=== PATIENT | male | born 1980 | race Two or more races ===

== ENCOUNTER 2018-09-09 17:09 | Emergency (ER) | payer OTHER ==
[2018-09-09 17:22] VITALS: BP 135/86; PULSE 95; TEMP 98.5; BMI 33.4
--- NOTE | 2018-09-09 18:44 | PDOC ---
History of Present Illness - General Chief Complaint: Chest Pain Stated Complaint: BACK PAIN Time Seen by Provider: 09/09/18 18:23 Past History - Past Medical History Allergies/Adverse Reactions: Allergies Allergy/AdvReac Type Severity Reaction Status Date / Time No Known Drug Allergies Allergy Verified 09/09/18 17:20 Home Medications: Ambulatory Orders Ibuprofen 800 mg PO TID #30 tablet 09/09/18 Oxycodone HCl/Acetaminophen [Percocet 5-325 mg Tablet] 1 tab PO Q6H #12 tablet MDD 4 09/09/18 Anemia: No Asthma: No Cancer: No Cardiac Disorders: No CVA: No COPD: No CHF: No DVT: No Dementia: No Diabetes: No GI Disorders: No Disorders: No HTN: No Hypercholesterolemia: No Liver Disease: No Seizures: No Thyroid Disease: No Lung CA: No - Surgical History Abdominal Surgery: Yes (BILATERAL INGUINAL HERNIA REPAIR X 3) Appendectomy: No Cardiac Surgery: No Cholecystectomy: No Lung Surgery: No Neurologic Surgery: No Orthopedic Surgery: No - Suicide/Smoking/Psychosocial Hx Smoking Status: Yes Smoking History: Current every day smoker Have you smoked in the past 12 months: Yes Number of Cigarettes Smoked Daily: 20 Information on smoking cessation initiated: No 'Breaking Loose' booklet given: 09/19/17 Hx Alcohol Use: No Drug/Substance Use Hx: No Substance Use Type: None Hx Substance Use Treatment: No *Physical Exam - Vital Signs Last Vital Signs Temp Pulse Resp BP Pulse Ox 98.5 F 95 H 16 135/86 96 09/09/18 17:20 09/09/18 17:20 09/09/18 17:20 09/09/18 17:20 09/09/18 17:20 ED Treatment Course - LABORATORY CBC & Chemistry Diagram: 09/09/18 20:14 09/09/18 20:14 *DC/Admit/Observation/Transfer Diagnosis at time of Disposition: Left against medical advice Left shoulder pain Qualifiers: Chronicity: acute Qualified Code(s): M25.512 - Pain in left shoulder - Discharge Dispostion Disposition: HOME - Referrals Referrals: Rubio Zhong MD [Primary Care Provider] - 24 hours - Patient Instructions Printed Discharge Instructions: DI for Atypical Chest Pain, DI for Shoulder Pain Additional Instructions: You were evaluated for your shoulder pain and chest pain today Take a percocet every 6 hours as needed for pain Follow up with your primary care doctor this week Return to the ED For worsening chest pain, shortness of breath, lightheadedness , or if you have any changes in your symptoms - Post Discharge Activity Forms/Work/School Notes: Back to Work
[2018-09-09] MEDS ORDERED: LIDOCAINE 5% TOPICAL PATCH TP ONE (18:57)
[2018-09-09] MEDS ORDERED: LIDOCAINE 5% TOPICAL PATCH ONE (19:57)
[2018-09-09] MEDS ORDERED: KETOROLAC TROMETHAMINE 60 MG/2 ML VIAL IM ONE (19:58)
[2018-09-09 20:20] LABS: BASO % 0.6 % (0-2.0); EOS % 1.9 % (0-4.5); HEMATOCRIT 39.3 % (35.4-49); LYMPH % 31.6 % (8-40); MCH 29.3 pg (25.7-33.7); MEAN CELL VOLUME 88.8 fl (80-96); MEAN PLT VOLUME 8.4 fl (7.5-11.1); MONO % 7.7 % (3.8-10.2); NEUT % 58.2 % (42.8-82.8); PLATELET COUNT 253 K/MM3 (134-434); RBC 4.42 M/mm3 (4.00-5.60); WHITE BLOOD COUNT 11.3 K/mm3 (4.0-10.0)
[2018-09-09] MEDS ORDERED: KETOROLAC TROMETHAMINE 60 MG/2 ML VIAL ONE (20:21)
[2018-09-09] MEDS ORDERED: LIDOCAINE PATCH REMOVAL MC SCH (22:00)
--- NOTE | 2018-09-10 18:02 | EKG ---
Test Reason : Blood Pressure : / mmHG Vent. Rate : 079 BPM Atrial Rate : 079 BPM P-R Int : 152 ms QRS Dur : 098 ms QT Int : 370 ms P-R-T Axes : 051 022 030 degrees QTc Int : 424 ms NORMAL SINUS RHYTHM CANNOT RULE OUT ANTERIOR INFARCT , AGE UNDETERMINED ABNORMAL ECG WHEN COMPARED WITH ECG OF 10-FEB-2018 16:14, NO SIGNIFICANT CHANGE WAS FOUND Confirmed by NESTOR CORONA MD ([id number]) on 09/10/2018 6:01:52 PM Referred By: Confirmed By:NESTOR CORONA MD
== END 2018-09-09 22:32 | disposition left against medical advice (07) ==
LOC: JER 17:09 → SUPCPDRO 17:09 → JER 22:01
PROC: 3E0233Z Introduction of Anti-inflammatory into Muscle, Percutaneous Approach (ICD-10-PCS; principal; 2018-09-09)
DX: M25.512 Pain in left shoulder (principal); R07.9 Chest pain, unspecified
CPT/HCPCS: 36415; 71046-TC-FY; 85025; 93005; 93010; 96372; 99282-25

== ENCOUNTER 2019-04-16 18:19 | Emergency (ER) | payer OTHER ==
[2019-04-16 18:39] VITALS: BP 110/81; PULSE 86; TEMP 98.1; BMI 32.5
--- NOTE | 2019-04-16 18:40 | PDOC ---
Rapid Medical Evaluation Time Seen by Provider: 04/16/19 18:35 Medical Evaluation: Allergies Allergy/AdvReac Type Severity Reaction Status Date / Time No Known Drug Allergies Allergy Verified 09/09/18 17:20 04/16/19 18:37 Pt presents for a broken tooth with associated pain Exam: Broken L upper incisior Orders: nothing Pt to proceed to the ER for further evaluation Discharge Disposition - Diagnosis Pain, dental - Referrals - Patient Instructions - Post Discharge Activity
--- NOTE | 2019-04-16 19:03 | PDOC ---
History of Present Illness - General Chief Complaint: Toothache Stated Complaint: TOOTH PAIN Time Seen by Provider: 04/16/19 18:35 History Source: Patient Exam Limitations: Clinical Condition - History of Present Illness Initial Comments: 04/16/19 19:15 Patient with no significant past medical history presented with complaint of a 2 weeks history of pain to left upper tooth due to chipped tooth which has been improving with Tylenol but worsens again after medication wears off. Patient reports he has not been able to see dentist due to uninsured. Patient came in today because the Tylenol has not been helping minimal. Denies any other symptoms Is this a multiple visit Asthma Patient?: No Timing/Duration: other (2 weeks) Past History - Past Medical History Allergies/Adverse Reactions: Allergies Allergy/AdvReac Type Severity Reaction Status Date / Time No Known Drug Allergies Allergy Verified 04/16/19 18:40 Home Medications: Ambulatory Orders Cyclobenzaprine HCl [Flexeril -] 10 mg PO HS #10 tablet 09/09/18 Oxycodone HCl/Acetaminophen [Percocet 5-325 mg Tablet] 1 tab PO Q6H #12 tablet MDD 4 09/09/18 Ibuprofen 800 mg PO Q8H PRN #20 tablet 04/16/19 Anemia: No Asthma: No Cancer: No Cardiac Disorders: No CVA: No COPD: No CHF: No DVT: No Dementia: No Diabetes: No GI Disorders: No Disorders: No HTN: No Hypercholesterolemia: No Liver Disease: No Seizures: No Thyroid Disease: No Lung CA: No - Surgical History Abdominal Surgery: Yes (BILATERAL INGUINAL HERNIA REPAIR X 3) Appendectomy: No Cardiac Surgery: No Cholecystectomy: No Lung Surgery: No Neurologic Surgery: No Orthopedic Surgery: No - Psycho Social/Smoking Cessation Hx Smoking Status: Yes Smoking History: Current every day smoker Have you smoked in the past 12 months: Yes Number of Cigarettes Smoked Daily: 15 Information on smoking cessation initiated: No 'Breaking Loose' booklet given: 09/19/17 Hx Alcohol Use: No Drug/Substance Use Hx: No Substance Use Type: None Hx Substance Use Treatment: No Review of Systems - Review of Systems Able to Perform ROS?: Yes Is the patient limited Micronesian proficient: No Constitutional: No: Chills, Fever, Malaise HEENTM: Yes: Symptoms Reported, See HPI, Dental Problems. No: Eye Pain, Blurred Vision, Tearing, Recent change in vision, Double Vision, Cataracts, Ear Pain, Ocular Prothesis, Ear Discharge, Nose Pain, Nose Congestion, Tinnitus, Nose Bleeding, Hearing Loss, Throat Pain, Throat Swelling, Mouth Pain, Difficulty Swallowing, Mouth Swelling, Other Respiratory: No: Symptoms reported, See HPI, Cough, Orthopnea, Shortness of Breath, SOB with Exertion, SOB at Rest, Stridor, Wheezing, Productive cough, Hemoptysis, Other Cardiac (ROS): No: Symptoms Reported, See HPI, Chest Pain, Edema, Irregular Heart Rate, Lightheadedness, Palpitations, Syncope, Chest Tightness, Other ABD/GI: No: Nausea, Vomiting All Other Systems: Reviewed and Negative *Physical Exam - Vital Signs Last Vital Signs Temp Pulse Resp BP Pulse Ox 98.1 F 86 16 110/81 99 04/16/19 18:35 04/16/19 18:35 04/16/19 18:35 04/16/19 18:35 04/16/19 18:35 - Physical Exam General Appearance: Yes: Nourished, Appropriately Dressed, Mild Distress HEENT: positive: Normal ENT Inspection, Other (chipped tooth off left upper 2nd premolar with tooth decay) Neck: positive: Supple Respiratory/Chest: positive: Lungs Clear, Normal Breath Sounds. negative: Respiratory Distress, Accessory Muscle Use Cardiovascular: positive: Regular Rhythm, Regular Rate Musculoskeletal: positive: Normal Inspection Extremity: positive: Normal Inspection Integumentary: positive: Normal Color Neurologic: positive: Fully Oriented, Alert, Normal Mood/Affect, Normal Response Medical Decision Making - Medical Decision Making 04/16/19 19:17 Patient with no significant past medical history presented with complaint of a 2 weeks history of pain to left upper tooth due to chipped tooth which has been improving with Tylenol but worsens again after medication wears off. Patient reports he has not been able to see dentist due to uninsured. Patient came in today because the Tylenol has not been helping minimal. Denies any other symptoms Exam significant for evaluation of tooth of left upper second premolar with mild tooth decay. Motrin 800 mg p.o. ordered for pain. Topical lidocaine ordered to help with pain. Referral given to patient to follow-up with [facility] where patient has seen on sliding scale for the uninsured. Patient stable for discharge Discharge - Discharge Information Problems reviewed: Yes Clinical Impression/Diagnosis: Pain, dental, Tooth decay Condition: Stable Disposition: HOME - Admission No - Additional Discharge Information Prescriptions: Ibuprofen 800 mg PO Q8H PRN #20 tablet PRN Reason: tooth pain - Follow up/Referral Referrals: [facility], Dental [Other] - Patient Discharge Instructions Patient Printed Discharge Instructions: DI for Dental Pain Additional Instructions: Take prescribed medication as prescribed for dental pain. Follow-up with your dentist as soon as possible as discussed - Post Discharge Activity
[2019-04-16] MEDS ORDERED: IBUPROFEN 400 MG TABLET (FP) PO ONE ×2 (19:07→19:25)
[2019-04-16] MEDS ORDERED: LIDOCAINE HCL 2% JELLY (30 ML/TUBE) TP ONE (19:07)
[2019-04-16] MEDS ORDERED: LIDOCAINE 2.5%/PRILOCAINE 2.5% (5 Gram/TUBE) TP ONE (19:24)
== END 2019-04-16 19:33 | disposition home or self-care (01) ==
LOC: JERFT 18:19
DX: K02.9 Dental caries, unspecified (principal)
CPT/HCPCS: 99281-25

== ENCOUNTER 2019-05-14 18:02 | Emergency (ER) | payer OTHER ==
[2019-05-14 18:19] VITALS: BP 125/81; PULSE 95; TEMP 98.3; BMI 30.4
[2019-05-14] MEDS ORDERED: IBUPROFEN 600 MG TABLET (FP) PO ONE (18:19)
--- NOTE | 2019-05-14 18:20 | PDOC ---
Rapid Medical Evaluation Time Seen by Provider: 05/14/19 18:16 Medical Evaluation: Allergies Allergy/AdvReac Type Severity Reaction Status Date / Time No Known Drug Allergies Allergy Verified 04/16/19 18:40 05/14/19 18:16 Pt presents for evaluation of R knee pain and L shoulder pain after falling today. Denies hitting his head or LOC Exam: TTP of the R knee with associated swelling. Unable to fully flex the knee Orders: X-rays, motrin Pt to proceed to the ER for further evaluation Discharge Disposition - Diagnosis Knee pain - Referrals - Patient Instructions - Post Discharge Activity
[2019-05-14] MEDS ORDERED: KETOROLAC TROMETHAMINE 30 MG/1 ML VIAL IM ONE (21:54)
--- NOTE | 2019-05-14 21:54 | PDOC ---
History of Present Illness - General Chief Complaint: Injury Stated Complaint: INJURY Time Seen by Provider: 05/14/19 18:16 History Source: Patient - History of Present Illness Initial Comments: 05/14/19 22:13 38-year-old male complaining of trip and fall landed on the left shoulder and neck right knee. Patient complains of pain to the right knee and left shoulder pain. Patient is able to leg raise, extend right knee. full rom to left shoulder Denies past medical history Past History - Past Medical History Allergies/Adverse Reactions: Allergies Allergy/AdvReac Type Severity Reaction Status Date / Time No Known Drug Allergies Allergy Verified 04/16/19 18:40 Home Medications: Ambulatory Orders Cyclobenzaprine HCl [Flexeril -] 10 mg PO HS #10 tablet 09/09/18 Oxycodone HCl/Acetaminophen [Percocet 5-325 mg Tablet] 1 tab PO Q6H #12 tablet MDD 4 09/09/18 Ibuprofen 800 mg PO Q8H PRN #20 tablet 04/16/19 Ibuprofen 600 mg PO QID PRN #20 tablet 05/14/19 Oxycodone HCl/Acetaminophen [Percocet 5-325 mg Tablet] 1 - 2 tab PO Q6H PRN #5 tab MDD 4 05/14/19 Anemia: No Asthma: No Cancer: No Cardiac Disorders: No CVA: No COPD: No CHF: No DVT: No Dementia: No Diabetes: No GI Disorders: No Disorders: No HTN: No Hypercholesterolemia: No Liver Disease: No Seizures: No Thyroid Disease: No Lung CA: No Other medical history: congenital right knee deformity - Surgical History Abdominal Surgery: Yes (BILATERAL INGUINAL HERNIA REPAIR X 3) Appendectomy: No Cardiac Surgery: No Cholecystectomy: No Lung Surgery: No Neurologic Surgery: No Orthopedic Surgery: No - Immunization History Immunization Up to Date: No - Psycho Social/Smoking Cessation Hx Smoking Status: Yes Smoking History: Current some day smoker Have you smoked in the past 12 months: No Number of Cigarettes Smoked Daily: 15 Information on smoking cessation initiated: No 'Breaking Loose' booklet given: 09/19/17 Hx Alcohol Use: No Drug/Substance Use Hx: No Substance Use Type: None Hx Substance Use Treatment: No Review of Systems - Review of Systems Able to Perform ROS?: Yes Is the patient limited Arabic proficient: No Constitutional: No: Symptoms Reported, See HPI, Chills, Diaphoresis, Fever, Loss of Appetite, Malaise, Night Sweats, Weakness, Weight Stable, Unintentional Wgt. Loss, Unexplained wgt Loss, Other Musculoskeletal: Yes: Other (knee pain) *Physical Exam - Vital Signs Last Vital Signs Temp Pulse Resp BP Pulse Ox 98.3 F 95 H 20 125/81 99 05/14/19 18:15 05/14/19 18:15 05/14/19 18:15 05/14/19 18:15 05/14/19 18:15 - Physical Exam General Appearance: Yes: Appropriately Dressed Extremity: positive: Normal Capillary Refill, Other (full rom to left [place]. able to touch oppositre shoulder. right knee slight swelling. able to leg raise , able to hyper extent) Integumentary: positive: Normal Color, Dry, Warm Neurologic: positive: Fully Oriented ED Progress Note - Progress Note Progress Note: A: right knee injury; left shoulder strain P: xray knee immbolizer RICE ortho follow up Discharge - Discharge Information Problems reviewed: Yes Clinical Impression/Diagnosis: Knee pain Qualifiers: Chronicity: acute Laterality: right Qualified Code(s): M25.561 - Pain in right knee Pain in left shoulder Qualifiers: Chronicity: acute Qualified Code(s): M25.512 - Pain in left shoulder Disposition: HOME - Additional Discharge Information Prescriptions: Ibuprofen 600 mg PO QID PRN #20 tablet PRN Reason: Mild Pain Oxycodone HCl/Acetaminophen [Percocet 5-325 mg Tablet] 1 - 2 tab PO Q6H PRN #5 tab MDD 4 PRN Reason: Moderate Pain - Follow up/Referral Referrals: Rubio Zhong MD [Primary Care Provider] - Montez Morelos MD [Staff Physician] - Call tomorrow Cheng Heaton DO [Staff Physician] - Call tomorrow - Patient Discharge Instructions Patient Printed Discharge Instructions: DI for Knee Sprain Additional Instructions: Apply ice to the area. Take ibuprofen every 6 hours as needed for pain. Use the knee immobilizer and crutches for walking assist. It is important that you follow-up with an orthopedic doctor. A referral was given to you. Return to the emergency room for any worsening symptoms. - Post Discharge Activity Work/Back to School Note: Back to Work
[2019-05-14] MEDS ORDERED: KETOROLAC TROMETHAMINE 30 MG/1 ML VIAL ONE (22:36)
== END 2019-05-14 23:23 | disposition home or self-care (01) ==
LOC: JERFT 18:02
PROC: 3E0233Z Introduction of Anti-inflammatory into Muscle, Percutaneous Approach (ICD-10-PCS; principal; 2019-05-14)
PROC: 2W3QXYZ Immobilization of Right Lower Leg using Other Device (ICD-10-PCS; 2019-05-14)
DX: S46.812A Strain of other muscles, fascia and tendons at shoulder and upper arm level, left arm, initial encounter (principal); S89.81XA Other specified injuries of right lower leg, initial encounter; W10.8XXA Fall (on) (from) other stairs and steps, initial encounter; Y93.E2 Activity, laundry; Y92.038 Other place in apartment as the place of occurrence of the external cause; Y99.8 Other external cause status; F17.210 Nicotine dependence, cigarettes, uncomplicated
CPT/HCPCS: 29530; 73030-TC-LT-FY; 73562-TC-RT-FY; 96372; 99281-25

== ENCOUNTER 2019-08-02 08:20 | Emergency (ER) | payer OTHER ==
[2019-08-02 08:26] VITALS: BP 111/78; PULSE 85; TEMP 97.7; BMI 27.3
[2019-08-02] MEDS ORDERED: ONDANSETRON *ODT* 4 MG TABLET SL ONE (09:06)
[2019-08-02] MEDS ORDERED: KETOROLAC TROMETHAMINE 30 MG/1 ML VIAL IVPUSH ONE (09:07)
[2019-08-02] MEDS ORDERED: ONDANSETRON 4 MG/2 ML VIAL IVPUSH ONE (09:07)
[2019-08-02] MEDS ORDERED: SODIUM CHLORIDE 1,000 ML IV STA (09:07)
[2019-08-02] MEDS ORDERED: METOCLOPRAMIDE HCL INJECTION 10 MG/2 ML VIAL IVPB ONE (09:13)
--- NOTE | 2019-08-02 09:14 | PDOC ---
History of Present Illness - General History Source: Patient Exam Limitations: No Limitations - History of Present Illness Travel History: No Initial Comments: 08/02/19 09:08 38-year-old male with no past medical history presents ED on of nausea vomiting and diarrhea at around 3 AM. Patient states 1-1/2-year-old son with similar and was brought physician yesterday who prescribed him Zofran sublingual 2 mg. Patient states took 2- 4 mg tablets with mild improvement of the nausea but continued feel as if he wants to vomit improvement of vomiting but continues to feel nauseated. Patient states continues with abdominal cramping with approximately 4 episodes of brown watery diarrhea. Patient denies any recent travel recent illness except for his son with recent sick contact. Patient states feels weak but denies any fever or chills. Quality: reports: mild Abdominal Pain Onset Location: reports: generalized abdomen Pain Radiation: reports: no radiation Aggravating Factors: improves with: None Alleviating Factors: improves with: None <Bev De La Cruz - Last Filed: 08/02/19 11:03> <Ratna Chavez - Last Filed: 08/02/19 11:55> - General Chief Complaint: Vomiting/Diarrhea Stated Complaint: STOM VIRUS Time Seen by Provider: 08/02/19 08:37 Past History - Travel Traveled outside of the country in the last 30 days: No Close contact w/someone who was outside of country & ill: No - Past Medical History Anemia: No Asthma: No Cancer: No Cardiac Disorders: No CVA: No COPD: No CHF: No DVT: No Dementia: No Diabetes: No GI Disorders: No Disorders: No HTN: No Hypercholesterolemia: No Liver Disease: No Seizures: No Thyroid Disease: No Lung CA: No - Surgical History Abdominal Surgery: Yes (BILATERAL INGUINAL HERNIA REPAIR X 3) Appendectomy: No Cardiac Surgery: No Cholecystectomy: No Lung Surgery: No Neurologic Surgery: No Orthopedic Surgery: No - Immunization History Immunization Up to Date: No - Psycho Social/Smoking Cessation Hx Smoking Status: Yes Smoking History: Unknown if ever smoked Have you smoked in the past 12 months: No Number of Cigarettes Smoked Daily: 15 'Breaking Loose' booklet given: 09/19/17 Hx Alcohol Use: No Drug/Substance Use Hx: No Substance Use Type: None Hx Substance Use Treatment: No Patient Lives Alone: No Lives with/in: spouse/SO <Bev De La Cruz - Last Filed: 08/02/19 11:03> <Ratna Chavez - Last Filed: 08/02/19 11:55> - Past Medical History Allergies/Adverse Reactions: Allergies Allergy/AdvReac Type Severity Reaction Status Date / Time No Known Drug Allergies Allergy Verified 08/02/19 08:21 Home Medications: Ambulatory Orders Metoclopramide HCl [Reglan] 10 mg PO BID PRN #10 tablet 08/02/19 Ondansetron HCl [Zofran] 4 mg PO TID PRN #12 tablet 08/02/19 Review of Systems - Review of Systems Able to Perform ROS?: Yes Constitutional: Yes: Weakness HEENTM: No: Symptoms Reported Respiratory: No: Symptoms reported Cardiac (ROS): No: Symptoms Reported ABD/GI: Yes: Diarrhea, Nausea, Vomiting, Abdominal cramping Musculoskeletal: No: Symptoms Reported Integumentary: No: Symptoms Reported Neurological: Yes: Weakness Hematologic/Lymphatic: No: Symptoms Reported <Bev De La Cruz - Last Filed: 08/02/19 11:03> *Physical Exam - Vital Signs Last Vital Signs Temp Pulse Resp BP Pulse Ox 97.7 F 85 20 111/78 99 08/02/19 08:24 08/02/19 08:24 08/02/19 08:24 08/02/19 08:24 08/02/19 08:24 - Physical Exam General Appearance: Yes: Nourished, Appropriately Dressed. No: Apparent Distress HEENT: positive: TMs Normal, Pharynx Normal. negative: Pale Conjunctivae Neck: positive: Supple Respiratory/Chest: positive: Lungs Clear, Normal Breath Sounds. negative: Respiratory Distress, Accessory Muscle Use Cardiovascular: positive: Regular Rhythm, Regular Rate. negative: Murmur Gastrointestinal/Abdominal: positive: Soft. negative: Tenderness Musculoskeletal: negative: CVA Tenderness Extremity: positive: Normal Inspection Integumentary: positive: Normal Color, Warm, Moist Neurologic: positive: Motor Strength 5/5 (ambulatory) <Bev De La Cruz - Last Filed: 08/02/19 11:03> - Vital Signs Last Vital Signs Temp Pulse Resp BP Pulse Ox 97.7 F 85 20 111/78 99 08/02/19 08:24 08/02/19 08:24 08/02/19 08:24 08/02/19 08:24 08/02/19 08:24 <KathyRatnamellissa Ye - Last Filed: 08/02/19 11:55> ED Treatment Course - LABORATORY CBC & Chemistry Diagram: 08/02/19 10:00 08/02/19 10:00 <Bev De La Cruz - Last Filed: 08/02/19 11:03> - LABORATORY CBC & Chemistry Diagram: 08/02/19 10:00 08/02/19 10:00 <KathyRatnamellissa Ye - Last Filed: 08/02/19 11:55> Medical Decision Making - Medical Decision Making 08/02/19 09:14 Chief complaint: Nausea vomiting, And diarrhea since 3 AM now feeling fatigued. Patient states unless in the past 2 days and was prescribed Zofran 2 mg by the rn clinical trials which he states took 2 4 mg tablets totaling 8 mg with no complete vomit no. No other complaints. Exam: Vital signs stable. No abdominal tenderness or distention Plan: Since patient took 8 mg of Zofran sublingual will insert IV check basic labs in order Toradol IV fluids and Reglan 08/02/19 11:04 Laboratory Tests 08/02/19 08/02/19 10:00 10:00 WBC 12.9 H Hgb 13.5 Hct 40.3 Absolute Neuts (auto) 10.5 H Neutrophils % 81.6 D Sodium 137 Potassium 4.4 Chloride 107 Carbon Dioxide 25 Anion Gap 5 L BUN 14.5 Creatinine 0.8 Random Glucose 92 Calcium 8.9 Magnesium 1.9 Total Bilirubin 0.9 AST 23 ALT 36 Alkaline Phosphatase 85 Total Protein 7.8 Albumin 3.8 Lipase 148 Pt feeling better. Will discharge patient home with Zofran and Reglan in case the Zofran does not work. Patient will also be told to follow bland diet for the next 48 hours. <Bev De La Cruz - Last Filed: 08/02/19 11:03> - Medical Decision Making The patient was seen and evaluated in conjunction with midlevel provider under my direct supervision, ancillary studies were reviewed. I agree with the plan as outlined with CASIMIRO De La Cruz. HPI, workup/dispo as outlined. VS reviewed, wnl. Vital Signs Temp Pulse Resp BP Pulse Ox 97.7 F 85 20 111/78 99 08/02/19 08:24 08/02/19 08:24 08/02/19 08:24 08/02/19 08:24 08/02/19 08:24 supportive care, hydration, basic labs/lytes, reassess labs and lytes, LFTs and lipase is unremarkable, mildly elevated nonspecific leukocytosis, could be from her GI sx, likely viral syndrome/AGE. anticipate discharge, pcp followup, return precautions 08/02/19 09:27 08/02/19 11:54 <Ratna Chavez - Last Filed: 08/02/19 11:55> Discharge - Discharge Information Problems reviewed: Yes <Bev De La Cruz - Last Filed: 08/02/19 11:03> <Ratna Chavez - Last Filed: 08/02/19 11:55> - Discharge Information Clinical Impression/Diagnosis: Nausea vomiting and diarrhea Condition: Improved Disposition: HOME - Additional Discharge Information Prescriptions: Metoclopramide HCl [Reglan] 10 mg PO BID PRN #10 tablet PRN Reason: Nausea And/Or Vomiting Ondansetron HCl [Zofran] 4 mg PO TID PRN #12 tablet PRN Reason: Nausea And/Or Vomiting - Follow up/Referral Referrals: Rubio Zhong MD [Primary Care Provider] - - Patient Discharge Instructions Patient Printed Discharge Instructions: Arley Diet, Nausea and Vomiting-Adult Additional Instructions: Please avoid spicy greasy and acidy food. Take Zofran as needed for nausea but if no improvement you may take Reglan. May take Motrin or Tylenol for discomfort. If symptoms do not improve over the next 2 days please return to the ED.
[2019-08-02] MEDS ORDERED: METOCLOPRAMIDE HCL INJECTION 10 MG/2 ML VIAL ONE (09:41)
[2019-08-02] MEDS ORDERED: KETOROLAC TROMETHAMINE 30 MG/1 ML VIAL ONE (09:41)
[2019-08-02 10:22] LABS: BASO % 0.2 % (0-2.0); EOS % 0.9 % (0-4.5); HEMATOCRIT 40.3 % (35.4-49); HEMOGLOBIN 13.5 GM/dL (11.7-16.9); LYMPH % 12.3 % (8-40); MCH 29.8 pg (25.7-33.7); MCHC 33.6 g/dl (32.0-35.9); MEAN CELL VOLUME 88.8 fl (80-96); NEUT % 81.6 % (42.8-82.8); PLATELET COUNT 226 K/MM3 (134-434); RBC 4.54 M/mm3 (4.00-5.60); WHITE BLOOD COUNT 12.9 K/mm3 (4.0-10.0)
[2019-08-02 10:43] LABS: ALBUMIN 3.8 g/dl (3.4-5.0); BILIRUBIN,TOTAL 0.9 mg/dL (0.2-1); BLOOD UREA NITROGEN 14.5 mg/dL (7-18); CALCIUM 8.9 mg/dL (8.5-10.1); CREATININE 0.8 mg/dL (0.55-1.3); MAGNESIUM 1.9 mg/dL (1.8-2.4); POTASSIUM 4.4 mmol/L (3.5-5.1); TOT PROT 7.8 g/dl (6.4-8.2)
== END 2019-08-02 11:45 | disposition home or self-care (01) ==
LOC: JER 08:20
PROC: 3E033GC Introduction of Other Therapeutic Substance into Peripheral Vein, Percutaneous Approach (ICD-10-PCS; principal; 2019-08-02)
PROC: 3E0333Z Introduction of Anti-inflammatory into Peripheral Vein, Percutaneous Approach (ICD-10-PCS; 2019-08-02)
DX: R11.2 Nausea with vomiting, unspecified (principal); R19.7 Diarrhea, unspecified
CPT/HCPCS: 36415; 80053; 83690; 83735; 85025; 96374; 96375; 99284-25; J7030

== ENCOUNTER 2020-05-26 12:58 | Emergency (ER) | payer OTHER ==
[2020-05-26 13:21] VITALS: BP 112/83; PULSE 87; TEMP 98.4; BMI 33.1
[2020-05-26] MEDS ORDERED: KETOROLAC TROMETHAMINE 30 MG/1 ML VIAL IM ONE (14:02)
[2020-05-26] MEDS ORDERED: LIDOCAINE 5% TOPICAL PATCH TP ONE (14:03)
[2020-05-26] MEDS ORDERED: LIDOCAINE 5% TOPICAL PATCH ONE (14:06)
[2020-05-26] MEDS ORDERED: KETOROLAC TROMETHAMINE 30 MG/1 ML VIAL ONE (14:07)
[2020-05-26] MEDS ORDERED: LIDOCAINE PATCH REMOVAL MC SCH (22:00)
== END 2020-05-26 14:40 | disposition home or self-care (01) ==
LOC: JER 12:58 → JERFT 12:58
PROC: 3E023GC Introduction of Other Therapeutic Substance into Muscle, Percutaneous Approach (ICD-10-PCS; principal; 2020-05-26)
DX: M54.5 Low back pain (principal)
CPT/HCPCS: 99284-25

== ENCOUNTER 2020-05-27 14:44 | Emergency (ER) | payer OTHER ==
[2020-05-27 14:53] VITALS: BP 124/85; PULSE 90; BMI 33.1
[2020-05-27] MEDS ORDERED: KETOROLAC TROMETHAMINE 30 MG/1 ML VIAL IM ONE (15:39)
[2020-05-27] MEDS ORDERED: KETOROLAC TROMETHAMINE 30 MG/1 ML VIAL ONE (15:41)
[2020-05-27] MEDS ORDERED: METHOCARBAMOL 500 MG TABLET PO ONE (15:45)
[2020-05-27] MEDS ORDERED: METHOCARBAMOL 500 MG TABLET ONE (15:45)
== END 2020-05-27 16:49 | disposition home or self-care (01) ==
LOC: JERFT 14:44
PROC: 3E023GC Introduction of Other Therapeutic Substance into Muscle, Percutaneous Approach (ICD-10-PCS; principal; 2020-05-27)
DX: M62.830 Muscle spasm of back (principal)
CPT/HCPCS: 99284-25

== ENCOUNTER 2020-12-24 10:11 | Emergency (ER) | payer OTHER ==
[2020-12-24 10:21] VITALS: BP 108/71; PULSE 87; TEMP 98.4; BMI 30.4
[2020-12-24] MEDS ORDERED: KETOROLAC TROMETHAMINE 60 MG/2 ML VIAL IM ONE (11:45)
[2020-12-24] MEDS ORDERED: KETOROLAC TROMETHAMINE 30 MG/1 ML VIAL ONE (11:47)
== END 2020-12-24 12:46 | disposition home or self-care (01) ==
LOC: JER 10:11
PROC: 3E0233Z Introduction of Anti-inflammatory into Muscle, Percutaneous Approach (ICD-10-PCS; principal; 2020-12-24)
DX: M54.6 Pain in thoracic spine (principal)
CPT/HCPCS: 99284-25

== ENCOUNTER 2022-02-11 17:02 | Inpatient (IN) | payer OTHER ==
[2022-02-11 17:11] VITALS: RESP 18
[2022-02-11 19:36] LABS: BASO % 0.3 % (0-2.0); EOS % 1.2 % (0-4.5); HEMATOCRIT 33.9 % (35.4-49); HEMOGLOBIN 11.3 GM/dL (11.7-16.9); LYMPH % 19.1 % (8-40); MCH 29.5 pg (25.7-33.7); MCHC 33.3 g/dl (32.0-35.9); MEAN CELL VOLUME 88.5 fl (80-96); MEAN PLT VOLUME 7.6 fl (7.5-11.1); MONO % 5.9 % (3.8-10.2); NEUT % 73.5 % (42.8-82.8); PLATELET COUNT 238 10^3/uL (134-434); RBC 3.83 M/mm3 (4.00-5.60); RDW 13.1 % (11.9-15.9)
[2022-02-11 20:03] LABS: ALBUMIN 3.3 g/dl (3.4-5.0); CALCIUM 8.4 mg/dL (8.5-10.1)
[2022-02-11] MEDS ORDERED: SODIUM CHLORIDE 0.9% 500 ML INFUS.BAG IV ONE (20:04)
[2022-02-11 20:06] LABS: CREATININE 0.9 mg/dL (0.55-1.3)
[2022-02-11 20:08] LABS: BILIRUBIN,TOTAL 0.3 mg/dL (0.2-1)
[2022-02-11 20:43] LABS: ERYTHROCYTE SEDIMENTATION RATE 49 mm/hr (0-10)
[2022-02-11 20:50] LABS: INR 1.11 (0.83-1.09); PROTHROMBIN TIME (PATIENT) 12.8 SEC (9.7-13.0)
[2022-02-11 20:53] LABS: ACTIVATED PTT 32.2 SECONDS (25.2-36.5)
[2022-02-12] MEDS ORDERED: VANCOMYCIN/WATER 1,250 MG/250 ML BAG IVPB SCH (00:20)
[2022-02-12] MEDS ORDERED: VANCOMYCIN/WATER 1250 MG 1,250 MG/250 ML BAG IVPB ONE (00:24)
[2022-02-12] MEDS: VANCOMYCIN/WATER 1,250 MG/250 ML BAG IVPB SCH ×2 (00:29→09:55)
[2022-02-12] MEDS ORDERED: ACETAMINOPHEN 1000 MG/100 ML BAG IVPB ONE (02:02)
[2022-02-12] MEDS ORDERED: ACETAMINOPHEN INJECTION 100 ML IVPB ONE (02:46)
[2022-02-12 04:02] VITALS: BMI 31.6
[2022-02-12] MEDS ORDERED: SODIUM CHLORIDE 500 ML IV STA (04:49)
[2022-02-12] MEDS: INSULIN SLIDING SCALE (NOVOLOG) 1 VIAL SQ SCH ×3 (06:41→16:43)
[2022-02-12] MEDS: ACETAMINOPHEN 1000 MG/100 ML BAG IVPB PRN ×2 (08:50→17:50)
[2022-02-12] MEDS: ENOXAPARIN NA (PORCINE) 40 MG/0.4 ML DISP.SYRIN SQ SCH (09:55)
[2022-02-12] MEDS ORDERED: CEFTRIAXONE 1 GM in DEXTROSE 5%-WATER 50 ML IVPB SCH (11:00)
[2022-02-12] MEDS ORDERED: CEFTRIAXONE 2 GM in DEXTROSE 5%-WATER 50 ML IVPB SCH ×2 (11:15→11:30)
[2022-02-12] MEDS ORDERED: CEFTRIAXONE 2 GM in DEXTROSE 5%-WATER 100 ML IVPB SCH (12:11)
[2022-02-12] MEDS: CEFTRIAXONE 2 GM in DEXTROSE 5%-WATER 100 ML IVPB SCH (12:27)
[2022-02-12 15:55] LABS: BASO % 0.3 % (0-2.0); EOS % 1.9 % (0-4.5); HEMATOCRIT 34.1 % (35.4-49); HEMOGLOBIN 11.1 GM/dL (11.7-16.9); LYMPH % 26.3 % (8-40); MCH 28.8 pg (25.7-33.7); MCHC 32.5 g/dl (32.0-35.9); MEAN CELL VOLUME 88.7 fl (80-96); MEAN PLT VOLUME 7.8 fl (7.5-11.1); MONO % 9.6 % (3.8-10.2); NEUT % 61.9 % (42.8-82.8); PLATELET COUNT 254 10^3/uL (134-434); RBC 3.85 M/mm3 (4.00-5.60); RDW 13.2 % (11.9-15.9); WHITE BLOOD COUNT 8.4 K/mm3 (4.0-10.0)
[2022-02-12 16:13] LABS: CALCIUM 8.2 mg/dL (8.5-10.1)
[2022-02-12 16:14] LABS: ALBUMIN 2.9 g/dl (3.4-5.0); BLOOD UREA NITROGEN 10.6 mg/dL (7-18)
[2022-02-12 16:17] LABS: CREATININE 0.6 mg/dL (0.55-1.3)
[2022-02-12 16:18] LABS: BILIRUBIN,TOTAL 0.3 mg/dL (0.2-1); TOT PROT 6.5 g/dl (6.4-8.2)
[2022-02-12] MEDS: VANCOMYCIN/WATER 1250 MG 1,250 MG/250 ML BAG IVPB SCH (21:35)
[2022-02-12] MEDS ORDERED: MELATONIN 5 MG TABLETS PO PRN (21:41)
[2022-02-12] MEDS ORDERED: NICOTINE POLACRILEX 2 MG GUM BUC PRN (21:44)
[2022-02-13] MEDS: ACETAMINOPHEN 1000 MG/100 ML BAG IVPB PRN (04:52)
[2022-02-13 08:36] LABS: BASO % 0.3 % (0-2.0); EOS % 1.4 % (0-4.5); HEMATOCRIT 36.4 % (35.4-49); HEMOGLOBIN 11.9 GM/dL (11.7-16.9); LYMPH % 19.7 % (8-40); MCH 29.1 pg (25.7-33.7); MCHC 32.7 g/dl (32.0-35.9); MEAN CELL VOLUME 88.9 fl (80-96); MEAN PLT VOLUME 7.8 fl (7.5-11.1); NEUT % 72.6 % (42.8-82.8); PLATELET COUNT 277 10^3/uL (134-434); RBC 4.09 M/mm3 (4.00-5.60); RDW 12.8 % (11.9-15.9); WHITE BLOOD COUNT 8.3 K/mm3 (4.0-10.0)
[2022-02-13 09:30] LABS: BLOOD UREA NITROGEN 11.1 mg/dL (7-18); CALCIUM 8.6 mg/dL (8.5-10.1); CREATININE 0.8 mg/dL (0.55-1.3)
[2022-02-13] MEDS: CEFTRIAXONE 2 GM in DEXTROSE 5%-WATER 100 ML IVPB SCH (10:13)
[2022-02-13] MEDS: VANCOMYCIN/WATER 1250 MG 1,250 MG/250 ML BAG IVPB SCH ×2 (10:14→21:57)
[2022-02-13] MEDS: ENOXAPARIN NA (PORCINE) 40 MG/0.4 ML DISP.SYRIN SQ SCH (10:15)
[2022-02-13] MEDS: NICOTINE 14 MG/24 HOURS TOPICAL PATCH TD SCH (10:15)
[2022-02-13] MEDS ORDERED: ACETAMINOPHEN 1000 MG/100 ML BAG IVPB PRN (12:08)
[2022-02-13] MEDS: IBUPROFEN 400 MG TABLET (FP) PO PRN (16:01)
[2022-02-14 09:53] LABS: CALCIUM 8.4 mg/dL (8.5-10.1)
[2022-02-14 09:54] LABS: BLOOD UREA NITROGEN 13.7 mg/dL (7-18)
[2022-02-14 09:56] LABS: BASO % 0.2 % (0-2.0); EOS % 1.7 % (0-4.5); HEMATOCRIT 34.7 % (35.4-49); HEMOGLOBIN 11.8 GM/dL (11.7-16.9); LYMPH % 23.3 % (8-40); MCH 29.9 pg (25.7-33.7); MCHC 33.9 g/dl (32.0-35.9); MEAN CELL VOLUME 88.2 fl (80-96); MEAN PLT VOLUME 7.4 fl (7.5-11.1); MONO % 5.9 % (3.8-10.2); NEUT % 68.9 % (42.8-82.8); PLATELET COUNT 270 10^3/uL (134-434); RBC 3.94 M/mm3 (4.00-5.60); RDW 12.8 % (11.9-15.9); WHITE BLOOD COUNT 8.8 K/mm3 (4.0-10.0)
[2022-02-14 09:57] LABS: CREATININE 0.7 mg/dL (0.55-1.3)
[2022-02-14] MEDS: CEFTRIAXONE 2 GM in DEXTROSE 5%-WATER 100 ML IVPB SCH (10:45)
[2022-02-14] MEDS: NICOTINE 14 MG/24 HOURS TOPICAL PATCH TD SCH (10:46)
[2022-02-14] MEDS: VANCOMYCIN/WATER 1250 MG 1,250 MG/250 ML BAG IVPB SCH (10:46)
[2022-02-14] MEDS: ENOXAPARIN NA (PORCINE) 40 MG/0.4 ML DISP.SYRIN SQ SCH (10:46)
[2022-02-14] MEDS: IBUPROFEN 400 MG TABLET (FP) PO PRN (10:47)
[2022-02-14 15:46] VITALS: BP 104/56; PULSE 65; TEMP 98.8
== END 2022-02-14 19:02 | disposition home or self-care (01) | DRG 383 ==
LOC: JER 17:02 → JERBED 20:24 → J8W 02-12 03:24
PROVIDERS: ADMIT Internal Medicine; ATTEND Internal Medicine
DX: L03.115 Cellulitis of right lower limb (principal); R73.9 Hyperglycemia, unspecified; D63.8 Anemia in other chronic diseases classified elsewhere; B95.62 Methicillin resistant Staphylococcus aureus infection as the cause of diseases classified elsewhere; F17.210 Nicotine dependence, cigarettes, uncomplicated
CPT/HCPCS: 36415; 73562-TC-RT-FY; 80048; 80053; 82728; 82962; 83036; 83540; 83550; 83605; 83735; 84100; 84466; 85025; 85045; 85610; 85651; 85730; 86140; 86850; 86900; 86901; 87040; 87070; 87186; 87205; 93005; 93010; 99285-25; C9803-CS; U0003; U0005

== ENCOUNTER 2022-04-12 21:33 | Emergency (ER) | payer OTHER ==
[2022-04-12 21:44] VITALS: BP 121/81; PULSE 85; RESP 17; TEMP 97.1; BMI 28.8
[2022-04-12] MEDS ORDERED: ACETAMINOPHEN 500 MG TABLET (FP) PO ONE (23:09)
[2022-04-12] MEDS ORDERED: ACETAMINOPHEN 325 MG TABLET (FP) ONE (23:19)
[2022-04-13] MEDS ORDERED: KETOROLAC TROMETHAMINE 30 MG/1 ML VIAL ONE (00:51)
[2022-04-13] MEDS ORDERED: KETOROLAC TROMETHAMINE 30 MG/1 ML VIAL IM ONE (00:53)
== END 2022-04-13 00:58 | disposition home or self-care (01) ==
LOC: JER 21:33
PROC: 3E023GC Introduction of Other Therapeutic Substance into Muscle, Percutaneous Approach (ICD-10-PCS; principal; 2022-04-12)
DX: M79.605 Pain in left leg (principal)
CPT/HCPCS: 93971-TC; 99284-25

== ENCOUNTER 2022-05-03 08:00 | Emergency (ER) | payer OTHER ==
[2022-05-03 08:40] VITALS: BP 117/73; PULSE 83; RESP 20; TEMP 98.8; BMI 28.8
[2022-05-03] MEDS ORDERED: BENZOCAINE/MENTH/CETYLPYRD CL 1 EACH LOZENGE MM PRN (09:45)
== END 2022-05-03 13:04 | disposition home or self-care (01) ==
LOC: JER 08:00
DX: R05.1 Acute cough (principal); J02.9 Acute pharyngitis, unspecified; M79.10 Myalgia, unspecified site
CPT/HCPCS: 0241U-QW; 99283-25

== ENCOUNTER 2022-10-04 06:40 | Day surgery (SDC) | payer OTHER ==
[2022-09-28 11:03] VITALS: BMI 30.4
[2022-10-04] MEDS ORDERED: EPINEPHrine 1:1,000 1,000 MCG/ML ML ONE (07:09)
[2022-10-04] MEDS ORDERED: DEXAMETHASONE SOD PHOSPHATE 4 MG/1 ML VIAL ONE ×2 (07:17→08:29)
[2022-10-04] MEDS ORDERED: MIDAZOLAM HCL 2 MG/2 ML SINGLE DOSE VIAL ONE (07:17)
[2022-10-04] MEDS ORDERED: ONDANSETRON 4 MG/2 ML VIAL ONE ×2 (07:17→08:29)
[2022-10-04] MEDS ORDERED: PROPOFOL 20 ML ONE (07:17)
[2022-10-04] MEDS ORDERED: SUCCINYLCHOLINE CHLORIDE 200 MG/10 ML SYRINGE ONE (07:18)
[2022-10-04] MEDS ORDERED: BUPIVACAINE HCL/PF 0.25% (2.5MG/ML) 10 ML VIAL ONE (07:18)
[2022-10-04] MEDS ORDERED: ceFAZolin SODIUM 1 GM VIAL ONE (07:18)
[2022-10-04] MEDS ORDERED: IBUPROFEN 400 MG TABLET (FP) PO PRN ×2 (07:41→14:30)
[2022-10-04] MEDS ORDERED: KETOROLAC TROMETHAMINE 30 MG/1 ML VIAL ONE (08:30)
[2022-10-04] MEDS ORDERED: FENTANYL CITRATE/PF 50 MCG/ML VIAL ONE ×2 (08:42→09:05)
[2022-10-04 08:50] VITALS: TEMP 97.6
[2022-10-04] MEDS ORDERED: oxyCODONE HCL 5 MG TABLET PO PRN ×2 (08:53)
[2022-10-04] MEDS ORDERED: ONDANSETRON 4 MG/2 ML VIAL IVPUSH PRN (08:53)
[2022-10-04] MEDS ORDERED: LACTATED RINGERS SOLUTION 1,000 ML IV SCH (09:00)
[2022-10-04 09:30] VITALS: PULSE 65
[2022-10-04 09:35] VITALS: RESP 18
[2022-10-04 09:54] VITALS: BP 118/62
== END 2022-10-04 10:49 | disposition home or self-care (01) ==
LOC: FASU 06:40
PROVIDERS: ATTEND Orthopaedic Surgery Sports Medicine
PROC: 0SBD4ZZ Excision of Left Knee Joint, Percutaneous Endoscopic Approach (ICD-10-PCS; principal; 2022-10-04 08:01)
DX: S83.282A Other tear of lateral meniscus, current injury, left knee, initial encounter (principal); M94.262 Chondromalacia, left knee; M65.862 Other synovitis and tenosynovitis, left lower leg; X58.XXXA Exposure to other specified factors, initial encounter; Y92.9 Unspecified place or not applicable; Y93.9 Activity, unspecified
CPT/HCPCS: 94760

== ENCOUNTER 2022-12-17 00:12 | Emergency (ER) | payer OTHER ==
[2022-12-17 00:23] VITALS: BP 113/75; PULSE 88; RESP 18; TEMP 98.1; BMI 30.4
[2022-12-17] MEDS ORDERED: DIPHTH,PERTUSS(ACELL),TET 0.5 ML DISP.SYRIN IM ONE ×2 (01:03→01:25)
[2022-12-17] MEDS ORDERED: AMOX TR/POT CLAV 875MG/125MG TABLETS (FP) PO ONE (01:03)
[2022-12-17] MEDS ORDERED: ACETAMINOPHEN 325 MG TABLET (FP) PO ONE (01:03)
[2022-12-17] MEDS ORDERED: ACETAMINOPHEN 325 MG TABLET (FP) ONE (01:25)
[2022-12-17] MEDS ORDERED: AMOX TR/POT CLAV 875MG/125MG TABLETS (FP) ONE (01:25)
[2022-12-17] MEDS ORDERED: IBUPROFEN 400 MG TABLET (FP) PO ONE ×2 (01:38→01:39)
== END 2022-12-17 02:20 | disposition home or self-care (01) ==
LOC: JER 00:12
PROC: 3E0234Z Introduction of Serum, Toxoid and Vaccine into Muscle, Percutaneous Approach (ICD-10-PCS; principal; 2022-12-17)
DX: S61.451A Open bite of right hand, initial encounter (principal); W54.0XXA Bitten by dog, initial encounter; Y92.9 Unspecified place or not applicable
CPT/HCPCS: 90715; 99283-25

== ENCOUNTER 2023-01-09 17:59 | Emergency (ER) | payer OTHER ==
[2023-01-09 18:18] VITALS: BP 124/72; PULSE 82; RESP 15; TEMP 98.3; BMI 30.4
[2023-01-09] MEDS ORDERED: METHOCARBAMOL 500 MG TABLET PO ONE (18:46)
[2023-01-09] MEDS ORDERED: KETOROLAC TROMETHAMINE 30 MG/1 ML VIAL IM ONE (18:46)
[2023-01-09] MEDS ORDERED: KETOROLAC TROMETHAMINE 60 MG/2 ML VIAL ONE (18:48)
[2023-01-09] MEDS ORDERED: METHOCARBAMOL 500 MG TABLET ONE (18:48)
== END 2023-01-09 19:42 | disposition home or self-care (01) ==
LOC: JERFT 17:59
PROC: 3E0233Z Introduction of Anti-inflammatory into Muscle, Percutaneous Approach (ICD-10-PCS; principal; 2023-01-09)
DX: M54.2 Cervicalgia (principal)
CPT/HCPCS: 99284-25

== ENCOUNTER 2024-08-31 16:31 | Emergency (ER) | payer OTHER ==
[2024-08-31 16:36] VITALS: BP 115/75; PULSE 89; RESP 18; TEMP 98.6; BMI 29.7
[2024-08-31] MEDS ORDERED: ACETAMINOPHEN 325 MG TABLET (FP) ONE (17:41)
[2024-08-31] MEDS ORDERED: CycloBENZAprine HCL 10 MG TABLET (FP) ONE (17:41)
[2024-08-31] MEDS ORDERED: KETOROLAC TROMETHAMINE 30 MG/1 ML VIAL ONE (17:41)
[2024-08-31] MEDS ORDERED: LIDOCAINE 5% TOPICAL PATCH ONE (17:45)
[2024-08-31] MEDS: KETOROLAC TROMETHAMINE 30 MG/1 ML VIAL IM ONE (17:58)
[2024-08-31] MEDS: ACETAMINOPHEN 325 MG TABLET (FP) PO ONE (17:58)
[2024-08-31] MEDS: CycloBENZAprine HCL 10 MG TABLET (FP) PO ONE (17:58)
[2024-08-31] MEDS: LIDOCAINE 5% TOPICAL PATCH TP ONE (17:59)
[2024-08-31] MEDS ORDERED: LIDOCAINE PATCH REMOVAL MC SCH (22:00)
== END 2024-08-31 18:41 | disposition home or self-care (01) ==
LOC: JERFT 16:31 → JER 16:31 → JERFT 18:41
PROC: 3E0233Z Introduction of Anti-inflammatory into Muscle, Percutaneous Approach (ICD-10-PCS; principal; 2024-08-31)
DX: M54.50 Low back pain, unspecified (principal)
CPT/HCPCS: 99284-25